=== PATIENT | male | born 1930 | race Caucasian/White ===

== ENCOUNTER → 2017-01-10 | Outpatient (CLI) | payer MEDICARE, OTHER ==
[~2017-01-10] MED LIST: COLACE-DPS100 MG PO; CRESTOR10 MG PO; DULCOLAX-DPS5 MG PO; DULERA 100/58.8 GM IH; DUONEB DPS3 ML IH; EFFEXOR XR DPS150 MG PO; FEOSOL-DPS325 MG PO; LACRI-LUBE3.5 GM OU; MAALOX DPS30 ML PO; MILK OF MAGNESI10 ML PO; NAMENDA5 MG PO; NITROSTAT0.4 MG SL; PLAVIX75 MG PO; PROTONIX40 MG PO; ROBITUSSIN DM D30 ML PO; SENOKOT S1 TAB PO; TEARS NATURAL D15 ML OU; THERAPEUTIC MUL1 TA1 PO; TYLENOL #3 DPS1 TAB PO; TYLENOL DPS325 MG PO; VESICARE5 MG PO; ZADITOR5 ML OU; ZESTRIL DPS10 MG PO
== END | disposition home or self-care (01) ==
LOC: RAD.S 10:12
DX: S32.050A Wedge compression fracture of fifth lumbar vertebra, initial encounter for closed fracture (principal); M47.817 Spondylosis without myelopathy or radiculopathy, lumbosacral region; Z98.890 Other specified postprocedural states; X58.XXXA Exposure to other specified factors, initial encounter

== ENCOUNTER 2017-03-27 18:16 | Observation (INO) | payer MEDICARE, OTHER ==
[~2017-03-27] VITALS: Ht 180.3 cm; Wt 85.0 kg
--- NOTE | ~2017-03-27 | ECH ---
Transthoracic Echocardiography Report (TTE) Demographics Patient Name CAMERON EPREZ Date of Study 03/28/2017 Patient Number [id number] Visit Number [id number] Date of 1930 Room Number 424 Accession Number [id number] Gender Male Age 86 year(s) Referring Rasheed Omalley Bus Greaser Dolores Shukla MD [facility] Rasheed Conklin MD Physician Interpreting Rasheed Conklin Blogs Manager Physician Supervising Ordering Physician Rasheed Conklin MD/MLP Nurse Stress Product Analyst Conclusions Summary Technically adequate exam. The estimated left ventricular ejection fraction is 55%. Diastolic assessment reveals Grade I diastolic dysfunction. Sclerotic aortic valve without stenosis. Procedure Type of Study TTE procedure:Echo Complete SF. Procedure Date Date: 03/28/2017 Start: 01:28 PM Technical Quality: Adequate visualization Indications:Atypical Chest Pain, Hypertension and History of CABG. Additional Indications:History of stents Appropriate Use Criteria: 9 Height: 71 inches Weight: 187 pounds BSA: 2.05 m Rhythm: NSR HR: 66 bpm BP: 132/60 mmHg M-Mode/2D Measurements LV Diastolic Dimension: 4.75 cm LV Systolic Dimension: 2.53 cm LV Septum Diastolic: 0.74 cm LV PW Diastolic: 0.86 cm AO Root Dimension: 3.42 cm Cardiac Output: 5.18 l/min LA Dimension: 3.75 cm Cardiac Index: 2.53 l/min*m RV Diastolic Dimension: 3.59 cm LA volume index: 26 ml/m LVOT: 1.92 cm LVOT VTI: 27.1 cm RV Base: 3 cm LV Stroke volume: 78.42 ml RV Mid: 2 cm LV Stroke volume index: 38.25 ml/m TAPSE: 1.7 cm TDI-S': 10 cm/s Doppler Measurements AV Peak Velocity: 1.2 m/s MV Peak E-Wave: 0.78 m/s AV Peak Gradient: 5.76 mmHg MV Peak A-Wave: 1.18 m/s AV Mean Gradient: 3.84 mmHg MV E/A Ratio: 0.66 LVOT Peak Velocity: 1.15 m/s MV P1/2t: 132.2 msec AV Area (Continuity):3.13 cm MV Deceleration Time: 435.1 msec MV Area (PHT): 1.66 cm PV Peak Velocity: 0.94 m/s E' Septal Velocity: 0.06 m/s PV Peak Gradient: 3.56 mmHg E' Lateral Velocity: 0.07 m/s A' Septal Velocity: 0.11 m/s A' Lateral Velocity: 0.13 m/s RA Area: 16.49 cm Findings Left Ventricle Normal left ventricle size and function. Diastolic assessment reveals Grade I diastolic dysfunction. Right Ventricle Normal right ventricle structure and function. Left Atrium Normal left atrial size. Right Atrium Normal right atrial size. Mitral Valve Mild mitral annular calcification. Trivial mitral regurgitation by color Doppler. Aortic Valve The aortic valve is moderately sclerotic. Tricuspid Valve Normal tricuspid valve structure and function. Trivial tricuspid regurgitation by color Doppler. Insufficient jet to calculate pulmonary pressures. Pulmonic Valve The pulmonic valve is not well visualized. Pericardial Effusion No evidence of pericardial effusion. Miscellaneous Ascending aorta not visualized. Pleural Effusion No evidence of pleural effusion. Contractility Score LV regional wall motion:(0-Non visualized 1-Normal 2-Hypokinesis 3-Akinesis 4-Dyskinesis 5-Aneurysm) Signature
--- NOTE | 2017-03-28 08:07 | HP ---
ADMIT: 03/27/2017 RM/LOC: 424 [facility] MR#: [id number] [address] [address] [place] [address] History and Physical SEX: M AGE: 86 : 1930 DATE OF SERVICE: CHIEF COMPLAINT: Onset of lower chest and epigastric pain sitting down at dinner tonight, "it felt like when I had my heart attack years ago." HISTORY OF PRESENT ILLNESS: Mr. Perez is an 86-year-old [employer] , who is in long-term care at the [facility] here in [place]. He states he was feeling fine until he sat down for dinner tonight and "before I could eat anything, I got hit by this really bad pain," and he puts his hands over his lower chest and epigastrium as they ever hurt him. He denies any radiation of the pain. He stated "I felt like I was going to throw up, but I did not." He does not recall breaking into a sweat or getting short of breath. Apparently, he was somewhat pale looking and EMS was called by staff, and he was brought to the ER. In route, he received oxygen and nitroglycerin x3 with complete resolution of his pain. Initially, he was rating his pain on an 8- 9/10 scale and he is totally asymptomatic now. His initial ER workup was quite benign including his initial cardiac workup. His EKG (despite his history for atrial fibrillation) shows sinus rhythm with a borderline short LA interval and certainly no acute changes. He is admitted for a "rule out ID" workup. PAST MEDICAL HISTORY: Childhood and early development apparently normal. The patient denies any serious childhood illnesses. He has known diffuse atherosclerotic vascular disease, a history of dementia-unknown type, COPD, systemic hypertension, chronic anemia, atrial fibrillation, anticoagulation (on Plavix), hyperlipidemia, chronic constipation, chronic gastroesophageal reflux disease, and depression. PREVIOUS SURGICAL HISTORY: Includes cholecystectomy; bilateral multiple shoulder repairs for rotator cuff, right side x3 and left side x2; and distant history of bilateral femur fractures. He had a three-vessel coronary artery bypass graft 20 plus years ago, he recalls no recent Cardiology followup. SOCIAL HISTORY: Reveals that he has been since 2007. He is at the long-term care for 6 or 7 years out at the [facility], and he cannot really tell me why he is there except "I just can't take of care myself." He quit smoking 60+ years ago. He drinks alcohol very rarely on social occasions at the [facility]. FAMILY HISTORY: Noncontributory. REVIEW OF SYSTEMS: Times 10 points is otherwise negative. MEDICATIONS: 1. Ketotifen fumarate 0.025% 1 drop OU b.i.d. 2. Ferrous sulfate 325 mg daily. 3. Cerovite senior vitamin 1 daily. 4. Optic sensitive 0.5-0.9% 1 drop q.i.d. OU. 5. Lubrifresh 0.5-inch in his eyes at bedtime. ADMIT: 03/27/2017 RM/LOC: 424 [facility] MR#: [id number] [facility] [address] [address] [place] [address] History and Physical SEX: M AGE: 86 : 1930 6. Felodipine 2.5 mg q.a.m. 7. Lisinopril 10 mg daily. 8. Crestor 10 mg at at bedtime. 9. Dulera 1 inhalation b.i.d. 10.Plavix 75 mg daily. 11.Venlafaxine ER 150 q.a.m. 12.Memantine 10 mg b.i.d. 13.Omeprazole 20 mg daily. 14.Tylenol with codeine 300/30 1 at bedtime. 15.Senexon-S 50/8.6 2 b.i.d. 16.VESIcare 5 mg daily. 17.Vitamin D 50,000 International Units daily. PRN orders for; 1. Robitussin DM. 2. Tylenol. 3. Refresh liquid gel drops. 4. Artificial Tears. 5. Milk of Mag. 6. DuoNeb. 7. Acetaminophen with codeine. 8. Bisacodyl b.i.d. p.r.n. PHYSICAL EXAMINATION: GENERAL: He is alert, talkative in good humor, seems oriented x2, a little confused as to time. VITAL SIGNS: His mean arterial pressures have been in the range of the low 60s, pulse in the 70s, respiratory rate of 16, he is afebrile, and O2 saturation on room air is 94%. HEENT: Essentially negative. NECK: Reasonably supple. I detect no obvious bruits. LUNGS: Lungs sound clear to auscultation. CARDIAC: Exam shows a regular rhythm. I do not detect an obvious murmur. ABDOMEN: Soft. No masses, tenderness, or organomegaly. GENERAL RECTAL EXAM: Not done. LOWER EXTREMITIES: Show diminished pulses, obvious osteoarthritic changes of his hands, knees, and feet, but no edema. GENERAL NEUROLOGIC: Normal without any focal changes-just his mild confusion as to time. IMPRESSION: ADMIT: 03/27/2017 RM/LOC: 424 [facility] MR#: [id number] [address] [place] [id number] [place] [address] History and Physical SEX: M AGE: 86 : 1930 1. Atypical chest pain, rule out myocardial infarction. 2. Mild dementia. 3. Known diffuse arteriosclerotic vascular disease. 4. Systemic hypertension. 5. Lipid abnormality. 6. Chronic depression. 7. Gastroesophageal reflux disease. 8. Status post multiple surgical procedures outlined above-including three- vessel CABG. PLAN: He has been admitted. We will repeat enzymes x3. We will get Cardiology consultation in the a.m. Miguel Ángel Iqbal MD/ lianne JOB #: [id number] CC: Miguel Ángel Iqbal, Attending Physician Miguel Ángel Iqbal, Family Physician
[2017-03-29] MEDS ORDERED: FEOSOL-DPS325 MG PO (14:16)
[2017-03-29] MEDS ORDERED: EFFEXOR XR DPS150 MG PO (14:16)
[2017-03-29] MEDS ORDERED: NAMENDA5 MG PO (14:16)
[2017-03-29] MEDS ORDERED: CRESTOR10 MG PO (14:16)
[2017-03-29] MEDS ORDERED: THERAPEUTIC MUL1 TA1 PO (14:17)
[2017-03-29] MEDS ORDERED: SENOKOT S1 TAB PO (14:17)
[2017-03-29] MEDS ORDERED: VESICARE5 MG PO (14:17)
[2017-03-29] MEDS ORDERED: PLAVIX75 MG PO (14:17)
[2017-03-29] MEDS ORDERED: TYLENOL #3 DPS1 TAB PO ×2 (14:17→14:20)
[2017-03-29] MEDS ORDERED: PROTONIX40 MG PO (14:17)
[2017-03-29] MEDS ORDERED: DULERA 100/58.8 GM IH (14:18)
[2017-03-29] MEDS ORDERED: LACRI-LUBE3.5 GM OU (14:18)
[2017-03-29] MEDS ORDERED: TEARS NATURAL D15 ML OU ×2 (14:18→14:21)
[2017-03-29] MEDS ORDERED: ZESTRIL DPS10 MG PO (14:18)
[2017-03-29] MEDS ORDERED: MAALOX DPS30 ML PO (14:19)
[2017-03-29] MEDS ORDERED: COLACE-DPS100 MG PO (14:19)
[2017-03-29] MEDS ORDERED: DULCOLAX-DPS5 MG PO (14:19)
[2017-03-29] MEDS ORDERED: MILK OF MAGNESI10 ML PO (14:19)
[2017-03-29] MEDS ORDERED: ZADITOR5 ML OU (14:19)
[2017-03-29] MEDS ORDERED: ROBITUSSIN DM D30 ML PO (14:20)
[2017-03-29] MEDS ORDERED: NITROSTAT0.4 MG SL (14:21)
[2017-03-29] MEDS ORDERED: TYLENOL DPS325 MG PO (14:21)
[2017-03-29] MEDS ORDERED: DUONEB DPS3 ML IH (14:21)
--- NOTE | 2017-03-31 10:38 | CO ---
ADMIT: 03/27/2017 RM/LOC: 424 [facility] MR#: [id number] [address] [address] [place] [address] Consultation SEX: M AGE: 86 : 1930 Corrected: 03/29/2017 0720 njv DATE OF CONSULTATION: 03/28/2017 ATTENDING PHYSICIAN: Miguel Ángel Iqbal CONSULTING PHYSICIAN: Jonathan Iqbal MD REASON FOR CONSULT: Chest pain. HISTORY OF PRESENT ILLNESS: The patient is an 86-year-old male with known coronary artery disease and history of coronary artery bypass graft an estimated 20 years ago, presenting with acute chest pain. The patient reports the onset of his chest pain to be just prior to supper and while at rest. He describes the chest pain as squeezing and rates it as a severity of 8/10. Associated symptoms include nausea. He denies shortness of breath or diaphoresis. The patient came into the ER and nitroglycerin was given x3. Chest pain resolved. Total time of duration of chest pain was an estimated 1 hour. There was no radiation of the pain. Juan Manuel does report that he has chest pain episodes that occur about monthly that are of less severity. There are no aggravating or alleviating factors. RISK FACTORS FOR CARDIOVASCULAR DISEASE: Include an estimated 94 pack-year smoking history in which he quit smoking 10 years ago, hypertension, and dyslipidemia. PAST MEDICAL HISTORY: Significant illnesses: Coronary artery disease, history of coronary artery bypass graft, dementia, gastroesophageal reflux disease, depression, hypertension, dyslipidemia, and history of atrial fibrillation. MEDICATIONS: 1. Crestor 10 mg p.o. at bedtime. 2. Effexor 150 mg p.o. daily. 3. Iron sulfate 325 mg p.o. 4. Namenda 10 mg p.o. b.i.d. 5. Plavix 75 mg p.o. daily. 6. Protonix 40 mg p.o. daily. 7. Senokot two tabs p.o. b.i.d. 8. Therapeutic multivitamin one tablet p.o. daily. 9. Tylenol one tab p.o. at bedtime. 10.VESIcare 5 mg p.o. daily. 11.Zestril 10 mg p.o. daily. 12.Dulera one puff b.i.d. 13.Lacri-lube apply to lash at bedtime. 14.Tears natural one GGT q.i.d. 15.Zaditor 5 mL one drop b.i.d. ALLERGIES: MORPHINE. ADMIT: 03/27/2017 RM/LOC: 424 [facility] MR#: [id number] [address] [address] [place] [address] Consultation SEX: M AGE: 86 : 1930 FAMILY HISTORY: Mother with diabetes. Negative family history for heart disease, cancer, or stroke. SOCIAL HISTORY: The patient does report caffeine use in 3 to 4 cups of coffee per day. He denies following a special diet, use of alcohol, or history of drug use or abuse. Occupation retired. Marital status, . REVIEW OF SYSTEMS: CONSTITUTIONAL: The patient does report he tires easily. He does not remember when he first noticed his symptom. He denies recent fevers, chills, recent weight loss, or weight gain. EYES: The patient does report history of blurry vision as well as cataracts, which were removed. Negative for glaucoma, partial or total loss of vision. THROAT, MOUTH, AND EARS: Negative for any problems with nose, sinus, throat, hearing, or ears. RESPIRATORY: Negative for asthma, wheezing, emphysema, bronchitis, chronic cough, bloody sputum, snoring loudly. He does report he wakes up more than once at night and feels tired in the a.m. GASTROINTESTINAL: The patient does report a history of heartburn. Negative for difficulty swallowing, hiatal hernia, stomach ulcer, gallbladder, or liver problems. GENITOURINARY: Positive for history of kidney stones. Negative for blood in urine. Problems with urination, UTIs, kidney failure. MUSCULOSKELETAL: Positive for arthritis and muscle and joint pains. Negative for gout. ENDOCRINE: Negative for problems with thyroid. HEMATOLOGY/LYMPHATIC: Positive for bleeding problems and skin cancer. Negative for anemia. NEUROLOGIC: Negative for chronic headaches, stroke, seizure disorder, numbness, or tingling. PSYCHIATRIC: Negative for mental illness or anxiety. Positive for depression. PHYSICAL EXAMINATION: VITAL SIGNS: Temperature afebrile, pulse 65, respiratory rate 16, blood pressure 132/60, and O2 saturation 92% on room air. GENERAL: Alert, oriented, and resting comfortably. NECK: No definite bruits. HEART: Regular. No rubs or gallops. LUNGS: Clear to auscultation. Poor effort. ABDOMEN: Mildly obese and nontender. No hepatomegaly. EXTREMITIES: No edema. Positive for hair loss. LABS: Sodium 138, potassium 4.4, chloride 105, CO2 24, BUN 21, and creatinine 1.1. Glucose 102, LDL 68, HDL 49, CK-MB of 1.3. Troponin less than 0.015. White blood cell count 10.1 and hemoglobin 15.8. UA is positive for leukocytes and nitrites. EKG, normal sinus rhythm. ADMIT: 03/27/2017 RM/LOC: 424 [facility] MR#: [id number] [address] [place] [phone] [place] [address] Consultation SEX: M AGE: 86 : 1930 ASSESSMENT: 1. Atypical chest pain. 2. Known coronary artery disease-distant coronary artery bypass graft. 3. Dementia. 4. History of atrial fibrillation. RECOMMENDATIONS: No evidence of acute coronary syndrome and no recurrent symptoms. Question GI source of discomfort. Echo today for baseline. Refuses more medications. [facility] recurrent [facility] later today. WALDO Campbell Student / Jonathan Iqbal MD / lianne JOB #: [id number] CC: Miguel Ángel Iqbal, Attending Physician Miguel Ángel Iqbal, Family Physician Corrected: 03/29/2017 0720 [email or web address]
--- NOTE | 2017-04-13 16:41 | ER ---
ADMIT: 03/27/2017 RM/LOC: 424 [facility] MR#: [id number] [address] [address] [place] [address] Emergency Room Report SEX: M AGE: 86 : 1930 DATE: 03/27/2017 ADDENDUM: unremarkable, initial set of cardiac markers are normal. The patient will be admitted. Ehsan Carpenter MD/ lianne JOB #: [id number] CC: Miguel Ángel Iqbal MD, Attending Physician Miguel Ángel Iqbal MD, Family Physician
== END 2017-03-28 15:11 ==
LOC: ER 18:16 → 4PCU 19:50
PROVIDERS: ADMIT Family Medicine
DX: R07.89 Other chest pain (principal); I25.10 Atherosclerotic heart disease of native coronary artery without angina pectoris; F03.90 Unspecified dementia, unspecified severity, without behavioral disturbance, psychotic disturbance, mood disturbance, and anxiety; I10 Essential (primary) hypertension; F32.9 Major depressive disorder, single episode, unspecified; K21.9 Gastro-esophageal reflux disease without esophagitis; Z95.1 Presence of aortocoronary bypass graft; Z79.899 Other long term (current) drug therapy